=== PATIENT | male | born 1950 | race Caucasian/White ===

== ENCOUNTER → 2017-10-13 06:02 | Day surgery (SDC) | payer MEDICARE, OTHER ==
--- NOTE | 2017-10-08 17:41 | HP ---
CC: Dr. Elias Reid* ADMISSION HISTORY AND PHYSICAL: DATE OF ADMISSION: 10/13/17 ATTENDING SURGEON: Romie Gautam MD* (dictated by DELBERT Love). CHIEF COMPLAINT: Symptomatic gallstones. HISTORY OF PRESENT ILLNESS: This is a 67-year-old hypertensive male who in May 2017 experienced an episode of upper abdominal pain approximately 1 hour after eating ham and eggs. He describes the initial symptoms as gas-like, which then increased and then gradually subsided over the next hour. Since that time, he has had ongoing anorexia with early satiety and resultant weight loss of approximately 15 to 20 pounds. He feels that of late his appetite has actually been pretty decent and his weight loss seems to have leveled off. He denies any nausea or vomiting, any changes in his bowels or dark urine. Lab work done on 07/28/17 revealed normal CBC, CMP including liver function tests and lipase. CT scan of the abdomen and pelvis on 08/10/17, showed a hyperattenuation lesion in the lateral right lobe of liver measuring 1.2 cm with rapid washout. There was noted to be a gallstone measuring up to 1.3 cm. There were also liver changes consistent with either hepatic steatosis or chronic infiltrative disease. There was some evidence of degenerative disc disease in the lower thoracic and lumbar spines and finally enlargement of the prostate. The patient was seen in our office by Dr. Gautam on 08/23/17. His workup to that point was reviewed and an ultrasound of the right upper quadrant was recommended. That study was performed on 08/27/17 showing a hypoechoic lesion in the lateral portion of the right lobe of liver measuring 1.4 x 1 x 1.4 cm, felt to be consistent with the lesion seen on CT and with characteristics consistent with hemangioma. In addition, the aforementioned gallstone was confirmed though there was no evidence of cholecystitis, i.e., gallbladder wall thickening or pericholecystic fluid. The common bile duct was normal in size. The patient returned for further discussion with Dr. Gautam on 09/02/17. The patient understands the indications for surgery, the risks, benefits, and alternatives as well as expected perioperative course. He would like to proceed and scheduled with laparoscopic cholecystectomy. PAST MEDICAL HISTORY: 1. Hypertension. 2. Chronic pain related to left upper extremity injury. 3. Anxiety. 4. Peptic ulcer disease (history of upper GI bleed in 2013, now on chronic PPI therapy). PAST SURGICAL HISTORY: Include, 1. Tonsillectomy. 2. Odontectomy. 3. He underwent ORIF of a left humeral fracture in 2014 and has had chronic pain in the left upper extremity since that time. CURRENT MEDICATIONS: 1. Pantoprazole 40 mg once daily. 2. Hydrochlorothiazide 12.5 mg once daily. 3. Tramadol 50 mg t.i.d. 4. Tylenol 650 mg extended release t.i.d. 5. Coreg 6.25 mg b.i.d. 6. Finasteride 5 mg daily. 7. Losartan 100 mg daily. 8. Neurontin 100 mg two tablets b.i.d. 9. Alprazolam 1 mg one half tablet p.r.n. for anxiety and/or insomnia. 10. Colace p.r.n. 11. Vitamin B12 of 250 mcg every other day. DRUG ALLERGIES: SULFA (lip swelling), (the patient avoids ASPIRIN and NSAIDs secondary to past upper GI bleed). FAMILY HISTORY: Negative for anesthesia problems, bleeding, or clotting disorders. SOCIAL HISTORY: The patient lives alone. He is a retired dentist. He denies use of tobacco, alcohol or other recreational drugs. REVIEW OF SYSTEMS: General: As per the HPI, no other recent acute illness. Eyes: He has been followed for borderline increased intraocular pressure and also an early cataract. Ears, Nose, Throat: No problems reported. Cardiovascular: No chest pain, palpitations, history of NH or angina. He states that some examiners do note a heart murmur, but not consistently. Respiratory: No history of asthma, chronic cough, or shortness of breath. GI: As above per HPI. Colonoscopy done around 2013. Normal study at that time. : He has treated for BPH and has nocturia x3 to 4. No additional recent problems reported. Endocrine: No diabetes or thyroid dysfunction. Neuro/Psych : Chronic pain as noted above, anxiety, no additions. PHYSICAL EXAMINATION GENERAL: Well-nourished somewhat thin, but otherwise well-appearing male in no acute distress. VITAL SIGNS: Height 68 inches, weight 134 pounds. BMI 20.1. Temperature 97.2 , blood pressure 120/80, pulse 60, respirations 16. HEENT: Pupils are equal, round. EOMs intact. No conjunctival pallor. Oropharynx: Teeth in good repair. No intraoral lesions. NECK: No lymphadenopathy, thyromegaly, or masses. LUNGS: Clear to auscultation. No rales or wheezes. HEART: Regular rate and rhythm. No murmur appreciated. ABDOMEN: Soft, nontender to palpation. No palpable masses or organomegaly. Negative Gilbert sign. GENITALIA: Not examined (done recently, no problems reported). EXTREMITIES: No edema. RECTAL: Not done. BACK: No spinous process or CVA tenderness. NEUROLOGIC: Grossly intact. SKIN: Warm and dry. No suspicious rashes or lesions noted. IMPRESSION: Symptomatic cholelithiasis. PLAN: Laparoscopic cholecystectomy. DELBERT LOVE [id number]/[facility] #: [id number] MTDD
[~2017-10-13 06:02] MED LIST: Atracurium* 10 MG/ML 10 ML VIAL ONE; Buffered Lidocaine 0.9% SYRIN* 5 ML/SYR SYRINGE INTRADERM ONE; Bupivacaine 0.25% SDV* 30 ML ONE; Dexamethasone IV* 4 MG/ML 1 ML (4 MG) ONE; DiMENhydriNATE IV* 50 MG/ML VIAL IV PUSH PRN; EPHEDrine (Pressors)* 50 MG/ML VIAL ONE; Famotidine TAB* 20 MG ONE; Famotidine TAB* 20 MG PO ONE; Flumazenil* 0.1 MG/ML 5 ML MDV ONE; Glycopyrrolate IV* 0.2 MG/ML 1 ML VIAL ONE; Lidocaine 2% PF * 5 ML VIAL ONE; Metoprolol Tartrate IV* 1 MG/ML 5 ML VIAL ONE; Midazolam* 1 MG/ML 5 ML VIAL (5 MG) ONE; Morphine INJ* 10 MG/ML 1 ML CARPUJECT ONE; Morphine INJ* 2 MG/ML 1 ML CARPUJECT IV PRN; Naloxone* 0.4 MG/ML 1 ML VIAL IV PRN; Neostigmine Methylsulfate* 1 MG/ML 10 ML VIAL (1 mg/ml) ONE; Ondansetron INJ* 2 MG/ML VIAL ONE; PROCHLORPERAZINE INJ 5 MG/ML 2 ML VIAL IV PRN; Phenylephrine INJ* 10 MG/ML 1 ML VIAL (10 MG) ONE; Propofol* 10 MG/ML 20 ML BTL IV PUSH ONE; Scopolamine 1.5 mg* PATCH TRANSDERM PRN; Scopolamine PATCH Remove* 1 NOTE MISC PATCH OFF ONE; ceFAZolin 2 GM PREMIX (*) 2 GM/50 ML BAG IVPB ONE; fentaNYL* 50 MCG/ML 2 ML VIAL (100 MCG VIAL) IV PRN; fentaNYL* 50 MCG/ML 2 ML VIAL (100 MCG VIAL) ONE; oxyCODONE/Acetamin 5/325 MG* TAB PO PRN
--- NOTE | 2017-10-13 08:38 | BRIEFOPN ---
Brief Operative Note - Surgery Procedures: Procedures Pre-OP Diagnoses: chronic cholecystitis Post-op Diagnosis: same Procedure: Laparoscopic cholecystectomy Surgeon: Lotus Asst: Hany Jamatherober: PRABHJOT Keene EBL: minimal IVF: minimal Specimen: gallbladder Drains: none Findings mild scarring without lesion at Left lobe liver
[2017-10-13 09:36] VITALS: BP 143/76
--- NOTE | 2017-10-13 11:25 | OP ---
CC: Dr. Elias Reid; [facility]* OPERATIVE REPORT: DATE OF OPERATION: 10/13/17 - SDS DATE OF : 46 SURGEON: Romie Gautam MD CHECK AIRMAN: Ms. Leach. ANESTHESIOLOGIST: Dr. Keene ANESTHESIA: General anesthesia. PRE-OP DIAGNOSIS: Chronic cholecystitis. POST-OP DIAGNOSIS: Chronic cholecystitis. OPERATIVE PROCEDURE: Laparoscopic cholecystectomy. ESTIMATED BLOOD LOSS: Minimal. FLUIDS: Minimal crystalloid fluid given. SPECIMEN: Gallbladder. FINDINGS: No discrete mass in the right lobe of the liver. DESCRIPTION OF PROCEDURE: The patient was identified in the preoperative area, brought to the OR, and placed on the operating table in supine position. Preoperative antibiotics were given. Sequential devices were placed on bilateral lower extremities. General anesthesia was induced. The patient's abdomen was prepped and draped in a standard surgical fashion. A time-out was performed. The infraumbilical incision was made, this was deepened down in the anterior fascia, which was elevated and Veress needle inserted. Abdomen was allowed to insufflate to a pressure of 15 mmHg. The patient tolerated this well. Veress needle was removed and a 5-mm trocar inserted here. Laparoscope was inserted and there was no evidence of injury from the trocar insertion or from the Veress needle. Additional trocars were placed in the following positions, 12- mm in the subxiphoid and two 5-mm along the right costal margin. View of the gallbladder showed normal-appearing fundus, this was grasped and elevated above the liver. The infundibular portion showed significant wispy adhesions that were taken down with both blunt and sharp dissection until we could identify best the lower portion of the gallbladder, which was grasped and retracted towards the right lower quadrant exposing Calot's triangle. Common bile duct was identified and protected. Peritoneum of the medial aspect of the gallbladder was taken with a hook cautery and the lateral aspect similarly taken. Cystic artery was isolated. Cystic duct was isolated. The cystic artery was doubly clipped and ligated and this gave us better access to this duct and we could dissect a little further and more proximal along this duct. We then clipped this triply and ligated it and removed it from the liver bed and placed in an endoscopic retrieval bag and brought out through the subxiphoid port site. Review of the cystic duct stump and cystic artery stump showed no bleeding and no bile. Next, we reviewed the liver. There had been a lesion on a CT scan and we only saw some scarring in the upper portion of the right lateral lobe. There was no discrete lesion that could be appreciated on the surface of the liver here. The abdomen was collapsed. Trocars were removed under direct vision. All 4 skin incisions were reapproximated with 4-0 Monocryl subcuticular sutures. Steri-Strips and sterile dressing were applied. The patient tolerated the procedure well. [id number]/[facility] #: [id number] [facility]
== END | disposition home or self-care (01) ==
LOC: OR 06:02
PROVIDERS: ATTEND Surgery
DX: K80.10 Calculus of gallbladder with chronic cholecystitis without obstruction (principal); I10 Essential (primary) hypertension; G89.29 Other chronic pain; M79.603 Pain in arm, unspecified
CPT/HCPCS: 88304; A9270-GY; J0690; J1100; J2250; J2270; J2405; J2704; J2710; J3010; J3490

== ENCOUNTER → 2017-10-13 15:08 | Emergency (ER) | payer MEDICARE, OTHER ==
[2017-10-13 15:16] VITALS: BP 222/104
== END | disposition left against medical advice (07) ==
LOC: ED 15:08
DX: R33.9 Retention of urine, unspecified (principal); Z53.21 Procedure and treatment not carried out due to patient leaving prior to being seen by health care provider

== ENCOUNTER 2018-03-16 09:21 | Day surgery (SDC) | payer MEDICARE ==
[~2018-03-16 09:21] MED LIST changes: +Acetaminophen TAB* 325 MG PO PRN; -Atracurium* 10 MG/ML 10 ML VIAL ONE; -Bupivacaine 0.25% SDV* 30 ML ONE; +Cyclopentolate 1% OPTH.SOL* 2 ML BTL ONE; -Dexamethasone IV* 4 MG/ML 1 ML (4 MG) ONE; -DiMENhydriNATE IV* 50 MG/ML VIAL IV PUSH PRN; -EPHEDrine (Pressors)* 50 MG/ML VIAL ONE; -Famotidine TAB* 20 MG ONE; -Famotidine TAB* 20 MG PO ONE; -Flumazenil* 0.1 MG/ML 5 ML MDV ONE; -Glycopyrrolate IV* 0.2 MG/ML 1 ML VIAL ONE; +Ketorolac 0.5% OPHTH (NF) 0.5 % 5 ML BTL ONE; +Lidocaine 1%* 5 ML VIAL ONE; +Lidocaine 2% EPI 1:200000 MPF*10-20 ML VIAL ONE; -Lidocaine 2% PF * 5 ML VIAL ONE; -Metoprolol Tartrate IV* 1 MG/ML 5 ML VIAL ONE; -Midazolam* 1 MG/ML 5 ML VIAL (5 MG) ONE; -Morphine INJ* 10 MG/ML 1 ML CARPUJECT ONE; -Morphine INJ* 2 MG/ML 1 ML CARPUJECT IV PRN; -Naloxone* 0.4 MG/ML 1 ML VIAL IV PRN; +Neomycin/Polymy/Dex OPTH.SUSP* MAXITROL 0.1% 5 ML ONE; -Neostigmine Methylsulfate* 1 MG/ML 10 ML VIAL (1 mg/ml) ONE; -Ondansetron INJ* 2 MG/ML VIAL ONE; -PROCHLORPERAZINE INJ 5 MG/ML 2 ML VIAL IV PRN; +Phenylephrine 2.5% OPTH.SOL* 2 ML BTL ONE; -Phenylephrine INJ* 10 MG/ML 1 ML VIAL (10 MG) ONE; +Povidone Iodine 5% OPTH* 30 ML BTL ONE; +Proparacaine 0.5% OPHTH.SOL* 15 ML BTL ONE; -Propofol* 10 MG/ML 20 ML BTL IV PUSH ONE; -Scopolamine 1.5 mg* PATCH TRANSDERM PRN; -Scopolamine PATCH Remove* 1 NOTE MISC PATCH OFF ONE; +acetaZOLAMIDE TAB* 250 MG ONE; -ceFAZolin 2 GM PREMIX (*) 2 GM/50 ML BAG IVPB ONE; -fentaNYL* 50 MCG/ML 2 ML VIAL (100 MCG VIAL) IV PRN; -fentaNYL* 50 MCG/ML 2 ML VIAL (100 MCG VIAL) ONE; -oxyCODONE/Acetamin 5/325 MG* TAB PO PRN
[2018-03-16] MEDS ORDERED: fentaNYL* 50 MCG/ML 2 ML VIAL (100 MCG VIAL) ONE (11:40)
[2018-03-16] MEDS ORDERED: Midazolam* 1 MG/ML 2 ML VIAL (2 MG) ONE (11:40)
[2018-03-16 12:44] VITALS: BP 118/49
--- NOTE | 2018-03-17 10:19 | OP ---
DATE OF OPERATION: 03/16/18 [facility] DATE OF : 46 SURGEON: Red Onofre MD PREOPERATIVE DIAGNOSIS: Cataract, left eye. POSTOPERATIVE DIAGNOSIS: Cataract, left eye. OPERATIVE PROCEDURE: Extracapsular cataract extraction with intraocular lens implant left eye. DESCRIPTION OF PROCEDURE: The patient was brought to the operating room after being given 1/2% Alcaine with epinephrine drops in the preoperative area. The eye was prepped and draped in the usual sterile fashion. Sterile drape and eyelid speculum were placed. Again, topical 1/2% Alcaine with epinephrine was given. A paracentesis incision was made at the 3 o'clock position with the No. 75 blade. Clear cornea incision 2.2 x 2.2-mm was created at the 6 o'clock position starting at the anterior limbus using the 2.2-mm keratome. The anterior chamber was irrigated with 0.4 mL of 1% non-preservative intracameral lidocaine and filled with DisCoVisc. A capsulorrhexis was completed using the cystotome and the Utrata forceps. Hydrodissection was performed with balanced salt solution. The lens nucleus was removed with the Phacoemulsification handpiece without incident. Cortex was removed with the irrigation-aspiration handpiece. The capsular bag was re-inflated using DisCoVisc and an SN60WF 20.5 implant was inserted with the shooter. The irrigation-aspiration handpiece was used to remove all residual DisCoVisc. The eye was refilled with balanced salt solution and the wound checked and found to be watertight. Topical Maxitrol drops were given. [id number]/[facility] #: [id number] [facility]
== END 2018-03-16 12:46 | disposition home or self-care (01) ==
LOC: OREAST 09:21
PROVIDERS: ATTEND Specialist
DX: H25.12 Age-related nuclear cataract, left eye (principal); H40.033 Anatomical narrow angle, bilateral; Z87.891 Personal history of nicotine dependence; I10 Essential (primary) hypertension; I35.0 Nonrheumatic aortic (valve) stenosis; E53.8 Deficiency of other specified B group vitamins
CPT/HCPCS: A9270-GY; J2250; J3010; V2632